=== PATIENT | female | born 1935 | race Caucasian/White ===

== ENCOUNTER 2017-10-13 18:01 | Inpatient (IN) | payer MEDICAID, MEDICARE ==
[~2017-10-13] VITALS: Ht 160 cm; Wt 89.4 kg
[2017-10-13] MEDS ORDERED: SODIUM CHLORIDE 0.9% 1,000 ML IV ONE ×2 (19:18→19:57)
[2017-10-13] MEDS ORDERED: PIPERACILLIN-TAZOB 3.375GM 100 ML IV ONE (20:00)
[2017-10-13 20:38] LABS: INR 1.15 (0.9-1.15); Partial Thromboplastin Time 26.7 sec (22.64-33.71); Prothrombin Time 12.5 sec (9.37-12.3)
[2017-10-13 20:39] LABS: Basophils # (auto) 0 uL; Eosinophils # (auto) 0 uL; Neutrophils % (auto) 91.3 % (37.0-80.0)
[2017-10-13 20:41] LABS: Albumin 3.1 g/dL (3.4-5.0); BUN/Creatinine Ratio 20.6; Basophils % (auto) 0.1 % (0.0-2.0); Calcium 8.4 mg/dL (8.5-10.1); Hematocrit 34.3 % (36.0-46.0); Hemoglobin 10.2 g/dL (12.2-16.2); Lymphocytes # (auto) 0.8 uL; Lymphocytes % (auto) 3.7 % (10.0-50.0); Mean Corpuscular Hemoglobin 20.7 pg (28.0-32.0); Mean Corpuscular Hgb Conc. 29.9 g/dL (32.0-36.0); Mean Corpuscular Volume 69.4 fL (80.0-100.0); Monocytes # (auto) 1.1 uL; Monocytes % (auto) 4.9 % (0.0-12.0); Neutrophils # (auto) 20.5 uL; Platelet Count (auto) 300 10^3/uL (140-450); Potassium 4.1 mmol/L (3.5-5.1); Red Blood Cells 4.94 10^6/uL (4.0-5.20); Red Cell Distribution Width 19.3 % (11.8-14.3); White Blood Cell 22.4 10^3/uL (4.4-10.8)
[2017-10-13 20:44] LABS: Bilirubin, Total 3.2 mg/dL (0.2-1.0); Total Protein 7.1 g/dL (6.4-8.2)
[2017-10-13] MEDS ORDERED: IBUPROFEN 600 MG TAB PO PRN (22:15)
[2017-10-13] MEDS ORDERED: ONDANSETRON HCL 4 MG/2 ML VIAL IV PRN (22:15)
[2017-10-13] MEDS ORDERED: LACTULOSE 20Gm/30ML SOLN PO PRN (22:15)
[2017-10-13] MEDS ORDERED: VANCOMYCIN PER PHARMACY 0 MG IV SCH (22:15)
[2017-10-13] MEDS ORDERED: MORPHINE SULFATE 4 MG/ML SYR/VIAL IV PRN (22:15)
[2017-10-13] MEDS ORDERED: VANCOMYCIN 1GM/250ML 250 ML IV ONE (22:45)
[2017-10-13] MEDS: PIPERACILLIN-TAZOB 3.375GM 100 ML IV SCH (23:04)
[2017-10-13] MEDS: SODIUM CHLORIDE 0.9% 1,000 ML IV SCH (23:22)
[2017-10-14] VITALS (8 sets, daily range): BP systolic 91–114; BP diastolic 54–74
[2017-10-14] MEDS: VANCOMYCIN 1GM/250ML 250 ML IV SCH
[2017-10-14] MEDS ORDERED: DEXTROSE (50%) 50ML SYRG IV PRN (03:15)
[2017-10-14] MEDS: ACCU-CHEK COMFORT CURVE STRIP VI SCH ×3 (06:37→17:27)
[2017-10-14] MEDS: LEVOTHYROXINE SODIUM 50 MCG TAB PO SCH (06:37)
[2017-10-14] MEDS: PIPERACILLIN-TAZOB 3.375GM 100 ML IV SCH ×3 (06:38→17:27)
[2017-10-14] MEDS: InsuLIN REG 1unit/0.01ml Soln (100units/ml) SC SCH ×3 (06:55→17:27)
[2017-10-14 07:05] LABS: Basophils # (auto) 0 uL; Basophils % (auto) 0.1 % (0.0-2.0); Eosinophils # (auto) 0 uL; Hemoglobin 9.2 g/dL (12.2-16.2); Lymphocytes # (auto) 0.7 uL; Monocytes # (auto) 0.9 uL; Neutrophils # (auto) 12.1 uL; Neutrophils % (auto) 87.9 % (37.0-80.0); White Blood Cell 13.8 10^3/uL (4.4-10.8)
[2017-10-14 07:08] LABS: Eosinophils % (auto) 0.1 % (0.0-7.0); Hematocrit 29.8 % (36.0-46.0); Lymphocytes % (auto) 5.2 % (10.0-50.0); Mean Corpuscular Hemoglobin 21.2 pg (28.0-32.0); Mean Corpuscular Hgb Conc. 30.7 g/dL (32.0-36.0); Mean Corpuscular Volume 69.2 fL (80.0-100.0); Monocytes % (auto) 6.7 % (0.0-12.0); Nucleated Red Blood Cells % 0.1 %; Platelet Count (auto) 218 10^3/uL (140-450); Red Blood Cells 4.31 10^6/uL (4.0-5.20); Red Cell Distribution Width 19.1 % (11.8-14.3)
[2017-10-14 07:30] LABS: Albumin 2.8 g/dL (3.4-5.0); Bilirubin, Total 3.8 mg/dL (0.2-1.0); Calcium 7.5 mg/dL (8.5-10.1); Total Protein 6.4 g/dL (6.4-8.2)
[2017-10-14] MEDS: ENOXAPARIN SOD 40 MG/0.4 ML SYRINGE SC SCH (11:34)
[2017-10-14] MEDS: SODIUM CHLORIDE 0.9% 1,000 ML IV SCH (11:35)
[2017-10-14] MEDS ORDERED: MELO1TAB56 PO (12:34)
[2017-10-14] MEDS ORDERED: GLIP-116 PO (12:34)
[2017-10-14] MEDS ORDERED: METF-371 PO (12:34)
[2017-10-14] MEDS ORDERED: PANT1INJ3 PO (12:34)
[2017-10-14] MEDS ORDERED: LEVO50TA7 PO (12:34)
[2017-10-14] MEDS ORDERED: DIGO0.1220 PO (12:34)
[2017-10-14] MEDS ORDERED: ENAL2.5T PO (12:34)
[2017-10-14] MEDS ORDERED: ATOR10TA PO (12:34)
[2017-10-14] MEDS ORDERED: SITA100T7 PO (12:34)
[2017-10-14 13:02] LABS: Urine Bacteria FEW /hpf (None Seen); Urine Blood 1+ /uL (Negative); Urine Specific Gravity 1.015 (1.001-1.035); Urine WBC 22 /hpf (0 - 5)
[2017-10-14 14:05] LABS: Bilirubin, Total 3.8 mg/dL (0.2-1.0)
[2017-10-14] MEDS ORDERED: ATORVASTATIN 20 MG TAB PO SCH (22:00)
[2017-10-15] VITALS (7 sets, daily range): BP systolic 121–148; BP diastolic 67–86
[2017-10-15] MEDS ORDERED: VANCOMYCIN 1GM/250ML 250 ML IV SCH
[2017-10-15] MEDS: VANCOMYCIN 1GM/250ML 250 ML IV SCH (00:07)
[2017-10-15] MEDS: PIPERACILLIN-TAZOB 3.375GM 100 ML IV SCH ×6 (00:07→23:30)
[2017-10-15] MEDS: ACCU-CHEK COMFORT CURVE STRIP VI SCH ×5 (00:07→23:30)
[2017-10-15] MEDS: SODIUM CHLORIDE 0.9% 1,000 ML IV SCH ×2 (00:55→13:59)
[2017-10-15] MEDS ORDERED: diphenhdrAMINE HCL 25 MG CAP PO ONE (01:15)
[2017-10-15] MEDS: InsuLIN REG 1unit/0.01ml Soln (100units/ml) SC SCH ×5 (06:00→23:30)
[2017-10-15] MEDS: LEVOTHYROXINE SODIUM 50 MCG TAB PO SCH (06:14)
[2017-10-15 06:40] LABS: Basophils # (auto) 0 uL; Eosinophils # (auto) 0.3 uL; Hemoglobin 9.5 g/dL (12.2-16.2); Monocytes # (auto) 0.7 uL; Nucleated Red Blood Cells % 0.1 %
[2017-10-15 06:43] LABS: Basophils % (auto) 0.4 % (0.0-2.0); Hematocrit 30.3 % (36.0-46.0); Lymphocytes # (auto) 1.8 uL; Lymphocytes % (auto) 18.1 % (10.0-50.0); Mean Corpuscular Hemoglobin 21.5 pg (28.0-32.0); Mean Corpuscular Hgb Conc. 31.3 g/dL (32.0-36.0); Mean Corpuscular Volume 68.7 fL (80.0-100.0); Monocytes % (auto) 7.2 % (0.0-12.0); Neutrophils # (auto) 7.1 uL; Neutrophils % (auto) 71.3 % (37.0-80.0); Platelet Count (auto) 251 10^3/uL (140-450); Red Blood Cells 4.41 10^6/uL (4.0-5.20); Red Cell Distribution Width 19.7 % (11.8-14.3); White Blood Cell 9.9 10^3/uL (4.4-10.8)
[2017-10-15 07:05] LABS: BUN/Creatinine Ratio 21.8; Bilirubin, Total 2.6 mg/dL (0.2-1.0); Calcium 8.4 mg/dL (8.5-10.1); Total Protein 7.3 g/dL (6.4-8.2)
[2017-10-15] MEDS: ENOXAPARIN SOD 40 MG/0.4 ML SYRINGE SC SCH (10:00)
[2017-10-15] MEDS ORDERED: PANTOPRAZOLE 40 MG TAB PO ONE (11:00)
[2017-10-15] MEDS ORDERED: DIGOXIN 0.125 MG TAB PO ONE (11:00)
[2017-10-15] MEDS ORDERED: PANTOPRAZOLE 40 MG/10 ML VIAL IV ONE (13:45)
[2017-10-16] VITALS (21 sets, daily range): BP systolic 77–151; BP diastolic 33–96
[2017-10-16] MEDS: VANCOMYCIN 1GM/250ML 250 ML IV SCH
[2017-10-16] MEDS: SODIUM CHLORIDE 0.9% 1,000 ML IV SCH (03:51)
[2017-10-16] MEDS: ACCU-CHEK COMFORT CURVE STRIP VI SCH ×3 (05:30→19:02)
[2017-10-16] MEDS: InsuLIN REG 1unit/0.01ml Soln (100units/ml) SC SCH ×3 (05:30→19:02)
[2017-10-16] MEDS: PIPERACILLIN-TAZOB 3.375GM 100 ML IV SCH ×2 (05:32→15:38)
[2017-10-16] MEDS: LEVOTHYROXINE SODIUM 50 MCG TAB PO SCH (06:02)
[2017-10-16 06:06] LABS: Albumin 2.8 g/dL (3.4-5.0); BUN/Creatinine Ratio 25.8; Bilirubin, Total 2.1 mg/dL (0.2-1.0); Calcium 8.1 mg/dL (8.5-10.1); Potassium 3.9 mmol/L (3.5-5.1); Total Protein 6.6 g/dL (6.4-8.2)
[2017-10-16] MEDS ORDERED: ADENOSINE 71 MG in GIVE UN-DILUTED 0 ML IV STA (08:32)
[2017-10-16] MEDS ORDERED: PANTOPRAZOLE 40 MG TAB PO SCH (10:00)
[2017-10-16] MEDS ORDERED: ceFAZolin 1GM/50ML 50 ML IV ONE (12:51)
[2017-10-16] MEDS ORDERED: fentaNYL CITRATE 100 MCG/2 ML VL ONE ×3 (12:56→19:00)
[2017-10-16] MEDS ORDERED: MIDAZOLAM HCL 1MG/1ML-2 ML VIAL ONE ×3 (12:56→19:00)
[2017-10-16] MEDS ORDERED: MEPERIDINE HCL (50 MG/ML) 1 ML VIAL ONE ×2 (12:56→18:21)
[2017-10-16] MEDS ORDERED: DEXAMETHASONE SOD PHOS 10MG/1ML VIAL INJ ONE ×2 (13:05→19:00)
[2017-10-16] MEDS ORDERED: PROPOFOL 10 MG/ML 20 ML IV ONE (13:05)
[2017-10-16] MEDS ORDERED: MIDAZOLAM HCL 1MG/1ML-2 ML VIAL IV PRN (14:00)
[2017-10-16] MEDS ORDERED: MORPHINE SULFATE 4 MG/ML SYR/VIAL IV ONE ×2 (14:00→20:00)
[2017-10-16] MEDS ORDERED: ACCU-CHEK COMFORT CURVE STRIP VI ONE (14:00)
[2017-10-16] MEDS ORDERED: LABETALOL HCL 5 MG/ML 4ML SYRINGE IV PRN ×2 (14:00→20:00)
[2017-10-16] MEDS: KETOROLAC TROMETH 30 MG/ML 1ML VIAL IV ONE ×2 (14:00→14:53)
[2017-10-16] MEDS ORDERED: DIGOXIN (250MCG/ML) 2 ML AMPULE ONE (14:19)
[2017-10-16] MEDS: MORPHINE SULFATE 4 MG/ML SYR/VIAL IV PRN ×2 (14:20→14:50)
[2017-10-16] MEDS: DIGOXIN (250MCG/ML) 2 ML AMPULE IV PRN ×2 (14:22→14:32)
[2017-10-16] MEDS ORDERED: AMIODARONE HCL 150 MG in D5W 5% 100 ML IV ONE (14:30)
[2017-10-16] MEDS ORDERED: KETOROLAC TROMETH 30 MG/ML 1ML VIAL ONE (14:45)
[2017-10-16] MEDS ORDERED: MORPHINE SULFATE INJECTION 1 ML ONE (14:51)
[2017-10-16] MEDS ORDERED: KETOROLAC TROMETH 30 MG/ML 1ML VIAL IV ONE ×2 (15:00→15:15)
[2017-10-16] MEDS ORDERED: MORPHINE SULFATE 8mg/ml INJ SDV IV PRN ×2 (15:00→20:00)
[2017-10-16] MEDS: ENOXAPARIN SOD 40 MG/0.4 ML SYRINGE SC SCH (15:38)
[2017-10-16] MEDS: DIGOXIN 0.125 MG TAB PO SCH (15:38)
[2017-10-16] MEDS: PANTOPRAZOLE 40 MG/10 ML VIAL IV SCH (15:38)
[2017-10-16] MEDS ORDERED: D5W/ SOD CHL 0.9%/KCL 20MEQ 1,000 ML IV SCH (15:45)
[2017-10-16] MEDS ORDERED: D5W/SOD CHL 0.45%/KCL 20MEQ 1,000 ML IV SCH (16:00)
[2017-10-16] MEDS: MORPHINE SULFATE 8mg/ml INJ SDV IV PRN (16:01)
[2017-10-16 17:43] LABS: Basophils # (auto) 0 uL; Eosinophils # (auto) 0 uL; Red Cell Distribution Width 19.4 % (11.8-14.3)
[2017-10-16 17:45] LABS: Basophils % (auto) 0.3 % (0.0-2.0); Hematocrit 23.7 % (36.0-46.0); Lymphocytes % (auto) 5.7 % (10.0-50.0); Mean Corpuscular Hgb Conc. 29.3 g/dL (32.0-36.0); Mean Corpuscular Volume 71.5 fL (80.0-100.0); Monocytes # (auto) 0.3 uL; Monocytes % (auto) 1.5 % (0.0-12.0); Neutrophils # (auto) 16.3 uL; Neutrophils % (auto) 92.5 % (37.0-80.0); Nucleated Red Blood Cells % 0.1 %; Platelet Count (auto) 248 10^3/uL (140-450); Red Blood Cells 3.32 10^6/uL (4.0-5.20); White Blood Cell 17.6 10^3/uL (4.4-10.8)
[2017-10-16 17:58] LABS: INR 1.07 (0.9-1.15); Partial Thromboplastin Time 24.8 sec (22.64-33.71); Prothrombin Time 11.7 sec (9.37-12.3)
[2017-10-16] MEDS ORDERED: PHENYLEPHRINE HCL 10 MG/ML VL IV ONE (18:01)
[2017-10-16] MEDS ORDERED: ETOMIDATE (2MG/ML) 20ML VIAL IV ONE (19:00)
[2017-10-16] MEDS ORDERED: POVIDONE IODINE 10 % TOPICAL OINT 30GM TOP ONE (19:17)
[2017-10-16] MEDS: PROPOFOL 100 ML IV SCH (19:20)
[2017-10-16] MEDS ORDERED: PROPOFOL 100 ML IV ONE (19:42)
[2017-10-16] MEDS ORDERED: ePHEDrine SULFATE 50 MG/ML AMP IV PRN (20:00)
[2017-10-16] MEDS ORDERED: fentaNYL CITRATE 100 MCG/2 ML VL IV ONE (20:00)
[2017-10-16 20:27] LABS: Eosinophils # (auto) 0 uL; Lymphocytes # (auto) 1.1 uL
[2017-10-16 20:29] LABS: Basophils # (auto) 0 uL; Basophils % (auto) 0.2 % (0.0-2.0); Hematocrit 27.9 % (36.0-46.0); Hemoglobin 8.7 g/dL (12.2-16.2); Lymphocytes % (auto) 5.9 % (10.0-50.0); Mean Corpuscular Hemoglobin 24.9 pg (28.0-32.0); Mean Corpuscular Hgb Conc. 31.1 g/dL (32.0-36.0); Mean Corpuscular Volume 80.1 fL (80.0-100.0); Monocytes % (auto) 4.9 % (0.0-12.0); Neutrophils # (auto) 17.2 uL; Platelet Count (auto) 177 10^3/uL (140-450); Red Blood Cells 3.48 10^6/uL (4.0-5.20); White Blood Cell 19.3 10^3/uL (4.4-10.8)
[2017-10-16 20:31] LABS: Red Cell Distribution Width 22.2 % (11.8-14.3)
[2017-10-16 22:25] LABS: Eosinophils # (auto) 0 uL; Hemoglobin 8.7 g/dL (12.2-16.2); Lymphocytes # (auto) 0.8 uL; Monocytes # (auto) 0.6 uL; Monocytes % (auto) 3.9 % (0.0-12.0); Neutrophils # (auto) 13.6 uL; Nucleated Red Blood Cells % 0.1 %
[2017-10-16 22:27] LABS: Basophils # (auto) 0.1 uL; Basophils % (auto) 0.5 % (0.0-2.0); Hematocrit 27.6 % (36.0-46.0); Lymphocytes % (auto) 5.1 % (10.0-50.0); Mean Corpuscular Hemoglobin 24.7 pg (28.0-32.0); Mean Corpuscular Hgb Conc. 31.6 g/dL (32.0-36.0); Mean Corpuscular Volume 78.1 fL (80.0-100.0); Neutrophils % (auto) 90.5 % (37.0-80.0); Platelet Count (auto) 180 10^3/uL (140-450); Red Blood Cells 3.53 10^6/uL (4.0-5.20); White Blood Cell 15.1 10^3/uL (4.4-10.8)
[2017-10-16 22:30] LABS: Red Cell Distribution Width 22.1 % (11.8-14.3)
[2017-10-17] VITALS (100 sets, daily range): BP systolic 103–186; BP diastolic 41–118
[2017-10-17] MEDS: MORPHINE SULFATE 8mg/ml INJ SDV IV PRN ×2 (03:00→13:24)
[2017-10-17 03:44] LABS: Basophils # (auto) 0 uL; Basophils % (auto) 0.1 % (0.0-2.0); Eosinophils # (auto) 0 uL; Hemoglobin 9.1 g/dL (12.2-16.2); Mean Corpuscular Volume 78.1 fL (80.0-100.0)
[2017-10-17 03:46] LABS: Hematocrit 29.1 % (36.0-46.0); Lymphocytes # (auto) 1.1 uL; Lymphocytes % (auto) 8.5 % (10.0-50.0); Mean Corpuscular Hemoglobin 24.5 pg (28.0-32.0); Mean Corpuscular Hgb Conc. 31.3 g/dL (32.0-36.0); Monocytes # (auto) 0.4 uL; Neutrophils # (auto) 11.2 uL; Neutrophils % (auto) 88.4 % (37.0-80.0); Platelet Count (auto) 178 10^3/uL (140-450); Red Blood Cells 3.73 10^6/uL (4.0-5.20); White Blood Cell 12.6 10^3/uL (4.4-10.8)
[2017-10-17 03:54] LABS: Red Cell Distribution Width 21.7 % (11.8-14.3)
[2017-10-17 04:00] LABS: Albumin 2.3 g/dL (3.4-5.0); Calcium 6.8 mg/dL (8.5-10.1); Magnesium 1.6 mg/dL (1.6-2.6)
[2017-10-17 04:02] LABS: Bilirubin, Total 1.5 mg/dL (0.2-1.0); Total Protein 5.5 g/dL (6.4-8.2)
[2017-10-17] MEDS: PIPERACILLIN-TAZOB 3.375GM 100 ML IV SCH ×4 (06:14→17:59)
[2017-10-17] MEDS: InsuLIN REG 1unit/0.01ml Soln (100units/ml) SC SCH ×4 (06:14→17:59)
[2017-10-17] MEDS: ACCU-CHEK COMFORT CURVE STRIP VI SCH ×4 (06:15→17:59)
[2017-10-17] MEDS: LEVOTHYROXINE SODIUM 50 MCG TAB PO SCH (06:15)
[2017-10-17] MEDS: PROPOFOL 100 ML IV SCH (06:21)
[2017-10-17] MEDS ORDERED: SODIUM CHLORIDE 0.9% 1,000 ML IV ONE (07:00)
[2017-10-17] MEDS: D5W/SOD CHL 0.45% 1,000 ML IV SCH ×2 (07:00→20:20)
[2017-10-17] MEDS: ENOXAPARIN SOD 40 MG/0.4 ML SYRINGE SC SCH (10:00)
[2017-10-17] MEDS ORDERED: MAGNESIUM SULFATE 1GM/100ML 100 ML IV ONE (10:45)
[2017-10-17] MEDS ORDERED: LIDOCAINE 1% (LOCAL ANESTH.) PF 5ml SDV ID ONE (12:00)
[2017-10-17] MEDS ORDERED: SODIUM BICARBONATE 8.4% INJ 50ML SYRINGE ONE (12:17)
[2017-10-17] MEDS: VANCOMYCIN 1GM/250ML 250 ML IV SCH ×3 (12:21→22:23)
[2017-10-17] MEDS: PANTOPRAZOLE 40 MG/10 ML VIAL IV SCH (12:24)
[2017-10-17] MEDS: DIGOXIN 0.125 MG TAB PO SCH (12:24)
[2017-10-17] MEDS ORDERED: SODIUM BICARBONATE 8.4 % INJ 50ML VIAL IV ONE (14:15)
[2017-10-17] MEDS: AMIODARONE HCL 900 MG in DEXTROSE 500 ML IV SCH (14:53)
[2017-10-17] MEDS ORDERED: ACETAMINOPHEN 325 MG TAB PO PRN (15:30)
[2017-10-17] MEDS: hydrALAZINE HCL 20 MG/ML VL IV PRN (15:51)
[2017-10-17] MEDS: SODIUM CHLOR 0.9% PF (SALINE LOCK) 10ML VIAL/SYR IV SCH (22:23)
[2017-10-18] VITALS (52 sets, daily range): BP systolic 109–162; BP diastolic 40–89
[2017-10-18] MEDS: PIPERACILLIN-TAZOB 3.375GM 100 ML IV SCH ×4 (05:58→18:07)
[2017-10-18] MEDS: ACCU-CHEK COMFORT CURVE STRIP VI SCH ×4 (05:59→18:07)
[2017-10-18] MEDS: InsuLIN REG 1unit/0.01ml Soln (100units/ml) SC SCH ×4 (06:08→18:07)
[2017-10-18] MEDS: LEVOTHYROXINE SODIUM 50 MCG TAB PO SCH (06:35)
[2017-10-18] MEDS: AMIODARONE HCL 900 MG in DEXTROSE 500 ML IV SCH (07:43)
[2017-10-18 08:49] LABS: Basophils # (auto) 0 uL; Eosinophils # (auto) 0 uL; Eosinophils % (auto) 0.1 % (0.0-7.0); Nucleated Red Blood Cells % 0.2 %
[2017-10-18 08:50] LABS: Basophils % (auto) 0.2 % (0.0-2.0); Hematocrit 22.4 % (36.0-46.0); Hemoglobin 7.1 g/dL (12.2-16.2); Lymphocytes # (auto) 2.5 uL; Lymphocytes % (auto) 13.6 % (10.0-50.0); Mean Corpuscular Hemoglobin 24.4 pg (28.0-32.0); Mean Corpuscular Hgb Conc. 31.5 g/dL (32.0-36.0); Mean Corpuscular Volume 77.5 fL (80.0-100.0); Monocytes # (auto) 1.2 uL; Monocytes % (auto) 6.7 % (0.0-12.0); Neutrophils # (auto) 14.4 uL; Neutrophils % (auto) 79.4 % (37.0-80.0); Platelet Count (auto) 205 10^3/uL (140-450); White Blood Cell 18.1 10^3/uL (4.4-10.8)
[2017-10-18 08:53] LABS: Red Cell Distribution Width 22.3 % (11.8-14.3)
[2017-10-18 09:27] LABS: Albumin 2.3 g/dL (3.4-5.0); BUN/Creatinine Ratio 22.9; Bilirubin, Total 0.9 mg/dL (0.2-1.0); Potassium 3.8 mmol/L (3.5-5.1); Total Protein 5.3 g/dL (6.4-8.2)
[2017-10-18] MEDS: DIGOXIN 0.125 MG TAB PO SCH (09:33)
[2017-10-18] MEDS: VANCOMYCIN 1GM/250ML 250 ML IV SCH ×2 (09:33→22:00)
[2017-10-18] MEDS: SODIUM CHLOR 0.9% PF (SALINE LOCK) 10ML VIAL/SYR IV SCH ×2 (09:33→22:00)
[2017-10-18] MEDS: PANTOPRAZOLE 40 MG/10 ML VIAL IV SCH (09:33)
[2017-10-18] MEDS: ENOXAPARIN SOD 40 MG/0.4 ML SYRINGE SC SCH (09:34)
[2017-10-18] MEDS: D5W/SOD CHL 0.45% 1,000 ML IV SCH ×2 (09:34→23:17)
[2017-10-18] MEDS ORDERED: AMIODARONE HCL 200 MG TAB PO ONE (12:45)
[2017-10-18] MEDS ORDERED: LORazepam 2MG/ML-1ML VIAL IV PRN (13:00)
[2017-10-18] MEDS: MORPHINE SULFATE 8mg/ml INJ SDV IV PRN (13:13)
[2017-10-18] MEDS ORDERED: HEPARIN DRIP/D5W 100UNITS/ML 250 ML IV SCH (15:30)
[2017-10-18] MEDS ORDERED: ENOXAPARIN SOD 30 MG/0.3 ML SYRINGE SC ONE (16:30)
[2017-10-18] MEDS: PROPOFOL 100 ML IV SCH (19:20)
[2017-10-18 21:22] LABS: INR 0.99 (0.9-1.15); Partial Thromboplastin Time 23.6 sec (22.64-33.71); Prothrombin Time 10.8 sec (9.37-12.3)
[2017-10-18] MEDS: ENOXAPARIN SOD 30 MG/0.3 ML SYRINGE SC SCH (22:00)
[2017-10-18] MEDS: AMIODARONE HCL 200 MG TAB PO SCH (22:00)
[2017-10-19] VITALS (41 sets, daily range): BP systolic 118–168; BP diastolic 48–123
[2017-10-19 04:46] LABS: Basophils # (auto) 0.1 uL; Eosinophils # (auto) 0.1 uL; Hemoglobin 8.4 g/dL (12.2-16.2); Neutrophils # (auto) 14.7 uL; Nucleated Red Blood Cells % 0.3 %; Platelet Count (auto) 179 10^3/uL (140-450)
[2017-10-19 04:48] LABS: Basophils % (auto) 0.3 % (0.0-2.0); Eosinophils % (auto) 0.5 % (0.0-7.0); Hematocrit 26.1 % (36.0-46.0); Lymphocytes % (auto) 15.8 % (10.0-50.0); Mean Corpuscular Hemoglobin 26.5 pg (28.0-32.0); Mean Corpuscular Hgb Conc. 32.2 g/dL (32.0-36.0); Mean Corpuscular Volume 82.2 fL (80.0-100.0); Monocytes # (auto) 1.2 uL; Monocytes % (auto) 6.1 % (0.0-12.0); Neutrophils % (auto) 77.3 % (37.0-80.0); Red Blood Cells 3.18 10^6/uL (4.0-5.20)
[2017-10-19 04:50] LABS: BUN/Creatinine Ratio 14.8; Calcium 6.2 mg/dL (8.5-10.1); Potassium 3.7 mmol/L (3.5-5.1); Red Cell Distribution Width 22.8 % (11.8-14.3)
[2017-10-19] MEDS: ACCU-CHEK COMFORT CURVE STRIP VI SCH ×7 (05:50→22:22)
[2017-10-19] MEDS: PIPERACILLIN-TAZOB 3.375GM 100 ML IV SCH ×4 (05:50→17:26)
[2017-10-19] MEDS: LEVOTHYROXINE SODIUM 50 MCG TAB PO SCH (05:50)
[2017-10-19] MEDS: InsuLIN REG 1unit/0.01ml Soln (100units/ml) SC SCH ×5 (06:04→22:21)
[2017-10-19] MEDS: hydrALAZINE HCL 20 MG/ML VL IV PRN (06:56)
[2017-10-19] MEDS: MORPHINE SULFATE 8mg/ml INJ SDV IV PRN ×2 (08:59→21:09)
[2017-10-19] MEDS: SODIUM CHLOR 0.9% PF (SALINE LOCK) 10ML VIAL/SYR IV SCH ×2 (10:00→22:00)
[2017-10-19] MEDS: ENOXAPARIN SOD 30 MG/0.3 ML SYRINGE SC SCH ×2 (11:10→21:08)
[2017-10-19] MEDS: PANTOPRAZOLE 40 MG/10 ML VIAL IV SCH (11:10)
[2017-10-19] MEDS: DIGOXIN 0.125 MG TAB PO SCH (11:11)
[2017-10-19] MEDS: AMIODARONE HCL 200 MG TAB PO SCH ×2 (11:11→21:09)
[2017-10-19] MEDS ORDERED: DEXTROSE (50%) 50ML SYRG IV PRN (11:30)
[2017-10-19] MEDS ORDERED: ENALAPRIL MALEATE 2.5 MG TAB ONE (11:33)
[2017-10-19] MEDS: VANCOMYCIN 1GM/250ML 250 ML IV SCH ×2 (11:40→21:08)
[2017-10-19] MEDS: D5W/SOD CHL 0.45% 1,000 ML IV SCH (12:30)
[2017-10-20] VITALS: BP 158/75
[2017-10-20] MEDS: PIPERACILLIN-TAZOB 3.375GM 100 ML IV SCH ×5 (00:22→23:43)
[2017-10-20] MEDS: ACCU-CHEK COMFORT CURVE STRIP VI SCH ×7 (00:22→21:29)
[2017-10-20] MEDS: D5W/SOD CHL 0.45% 1,000 ML IV SCH (01:40)
[2017-10-20 04:00] VITALS: BP 166/66
[2017-10-20] MEDS: hydrALAZINE HCL 20 MG/ML VL IV PRN (05:52)
[2017-10-20 05:59] LABS: Basophils % (auto) 0.3 % (0.0-2.0); Eosinophils # (auto) 0.2 uL; Hemoglobin 8.7 g/dL (12.2-16.2); Monocytes # (auto) 0.9 uL; Monocytes % (auto) 5.5 % (0.0-12.0); Neutrophils # (auto) 12.4 uL; Nucleated Red Blood Cells % 0.2 %; White Blood Cell 15.9 10^3/uL (4.4-10.8)
[2017-10-20 06:06] LABS: Basophils # (auto) 0.1 uL; Eosinophils % (auto) 1.3 % (0.0-7.0); Lymphocytes # (auto) 2.3 uL; Lymphocytes % (auto) 14.6 % (10.0-50.0); Mean Corpuscular Hemoglobin 26.2 pg (28.0-32.0); Mean Corpuscular Hgb Conc. 32.3 g/dL (32.0-36.0); Neutrophils % (auto) 78.3 % (37.0-80.0); Platelet Count (auto) 205 10^3/uL (140-450); Red Blood Cells 3.34 10^6/uL (4.0-5.20)
[2017-10-20 06:15] LABS: Red Cell Distribution Width 23.4 % (11.8-14.3)
[2017-10-20] MEDS: InsuLIN REG 1unit/0.01ml Soln (100units/ml) SC SCH ×4 (07:00→21:49)
[2017-10-20] MEDS: LEVOTHYROXINE SODIUM 50 MCG TAB PO SCH (07:00)
[2017-10-20] MEDS: MORPHINE SULFATE 8mg/ml INJ SDV IV PRN ×2 (08:01→08:52)
[2017-10-20 08:03] VITALS: BP 131/67
[2017-10-20 08:54] LABS: Albumin 2.2 g/dL (3.4-5.0); BUN/Creatinine Ratio 8.1; Bilirubin, Total 1.1 mg/dL (0.2-1.0); Calcium 7.3 mg/dL (8.5-10.1); Potassium 3.9 mmol/L (3.5-5.1); Total Protein 5.5 g/dL (6.4-8.2)
[2017-10-20] MEDS: PANTOPRAZOLE 40 MG/10 ML VIAL IV SCH (10:11)
[2017-10-20] MEDS: VANCOMYCIN 1GM/250ML 250 ML IV SCH ×2 (10:11→21:28)
[2017-10-20] MEDS: ENOXAPARIN SOD 30 MG/0.3 ML SYRINGE SC SCH ×2 (10:11→21:29)
[2017-10-20] MEDS: ENALAPRIL MALEATE 2.5 MG TAB PO SCH (10:12)
[2017-10-20] MEDS: AMIODARONE HCL 200 MG TAB PO SCH ×2 (10:13→21:29)
[2017-10-20] MEDS: DIGOXIN 0.125 MG TAB PO SCH (10:13)
[2017-10-20] MEDS: SODIUM CHLOR 0.9% PF (SALINE LOCK) 10ML VIAL/SYR IV SCH ×2 (10:14→21:29)
[2017-10-20 11:50] VITALS: BP 167/74
[2017-10-20 17:07] VITALS: BP 159/75
[2017-10-20 22:00] VITALS: BP 155/81
[2017-10-21 05:00] VITALS: BP 133/67
[2017-10-21 05:39] LABS: Basophils # (auto) 0 uL; Basophils % (auto) 0.4 % (0.0-2.0); Eosinophils # (auto) 0.3 uL; Hemoglobin 8.9 g/dL (12.2-16.2); Nucleated Red Blood Cells % 0.2 %
[2017-10-21] MEDS: PIPERACILLIN-TAZOB 3.375GM 100 ML IV SCH (05:45)
[2017-10-21 05:46] LABS: Eosinophils % (auto) 2.4 % (0.0-7.0); Hematocrit 27.7 % (36.0-46.0); Lymphocytes % (auto) 15.4 % (10.0-50.0); Mean Corpuscular Hemoglobin 26.1 pg (28.0-32.0); Mean Corpuscular Hgb Conc. 32.2 g/dL (32.0-36.0); Mean Corpuscular Volume 80.9 fL (80.0-100.0); Monocytes # (auto) 0.9 uL; Neutrophils # (auto) 9.9 uL; Neutrophils % (auto) 74.8 % (37.0-80.0); Platelet Count (auto) 241 10^3/uL (140-450); Red Blood Cells 3.42 10^6/uL (4.0-5.20); White Blood Cell 13.2 10^3/uL (4.4-10.8)
[2017-10-21 05:55] LABS: Albumin 2.2 g/dL (3.4-5.0); BUN/Creatinine Ratio 11.5; Calcium 7.8 mg/dL (8.5-10.1)
[2017-10-21 05:58] LABS: Bilirubin, Total 1.1 mg/dL (0.2-1.0); Total Protein 5.6 g/dL (6.4-8.2)
[2017-10-21 06:05] LABS: Red Cell Distribution Width 23.8 % (11.8-14.3)
[2017-10-21] MEDS: ACCU-CHEK COMFORT CURVE STRIP VI SCH ×4 (06:30→22:05)
[2017-10-21] MEDS: LEVOTHYROXINE SODIUM 50 MCG TAB PO SCH (06:30)
[2017-10-21] MEDS: InsuLIN REG 1unit/0.01ml Soln (100units/ml) SC SCH ×4 (06:30→22:04)
[2017-10-21 08:26] VITALS: BP 140/71
[2017-10-21] MEDS ORDERED: MAGNESIUM SULFATE 1GM/100ML 100 ML IV ONE (09:15)
[2017-10-21] MEDS ORDERED: HYDR-4683 PO (10:21)
[2017-10-21] MEDS ORDERED: LEVO500T21 PO (10:26)
[2017-10-21] MEDS ORDERED: METR500T PO (10:26)
[2017-10-21] MEDS ORDERED: DOCU-94 PO (10:26)
[2017-10-21] MEDS ORDERED: CLIN1CAP4 PO (10:26)
[2017-10-21] MEDS ORDERED: SACC250C PO (10:26)
[2017-10-21] MEDS ORDERED: LEVOFLOXACIN 500 MG TAB PO ONE (10:45)
[2017-10-21] MEDS ORDERED: LACTULOSE 20Gm/30ML SOLN PO PRN (10:45)
[2017-10-21] MEDS: ENOXAPARIN SOD 30 MG/0.3 ML SYRINGE SC SCH ×2 (10:49→22:04)
[2017-10-21] MEDS: ENALAPRIL MALEATE 2.5 MG TAB PO SCH (10:50)
[2017-10-21] MEDS: DIGOXIN 0.125 MG TAB PO SCH (10:50)
[2017-10-21] MEDS: SODIUM CHLOR 0.9% PF (SALINE LOCK) 10ML VIAL/SYR IV SCH ×2 (10:51→22:03)
[2017-10-21] MEDS: AMIODARONE HCL 200 MG TAB PO SCH ×2 (10:51→22:04)
[2017-10-21] MEDS ORDERED: glipiZIDE 5 MG TAB PO ONE (11:00)
[2017-10-21] MEDS ORDERED: DEXTROSE (50%) 50ML SYRG IV PRN (11:00)
[2017-10-21] MEDS ORDERED: FLORASTOR (S. BOULARDII) 250 MG CAP PO SCH (12:00)
[2017-10-21 12:36] VITALS: BP 164/79
[2017-10-21] MEDS: MORPHINE SULFATE 8mg/ml INJ SDV IV PRN ×2 (13:52→23:57)
[2017-10-21] MEDS: metroNIDAZOLE 500 MG TAB PO SCH ×2 (14:03→22:04)
[2017-10-21] MEDS: CLINDAMYCIN HCL 150 MG CAP PO SCH ×2 (14:03→22:04)
[2017-10-21 16:56] VITALS: BP 139/65
[2017-10-21] MEDS: PRO-STAT 64 30ML PO SCH (17:33)
[2017-10-21 22:00] VITALS: BP 164/79
[2017-10-21] MEDS: hydrALAZINE HCL 20 MG/ML VL IV PRN (22:05)
[2017-10-22 05:47] VITALS: BP 156/79
[2017-10-22 05:48] LABS: Basophils # (auto) 0 uL; Eosinophils # (auto) 0.3 uL; Hematocrit 28.3 % (36.0-46.0); Monocytes # (auto) 0.9 uL
[2017-10-22 05:51] LABS: Basophils % (auto) 0.3 % (0.0-2.0); Lymphocytes # (auto) 1.9 uL; Lymphocytes % (auto) 16.5 % (10.0-50.0); Mean Corpuscular Hemoglobin 25.9 pg (28.0-32.0); Mean Corpuscular Hgb Conc. 31.9 g/dL (32.0-36.0); Mean Corpuscular Volume 81.3 fL (80.0-100.0); Monocytes % (auto) 7.9 % (0.0-12.0); Neutrophils # (auto) 8.5 uL; Neutrophils % (auto) 72.3 % (37.0-80.0); Nucleated Red Blood Cells % 0.1 %; Platelet Count (auto) 293 10^3/uL (140-450); Red Blood Cells 3.48 10^6/uL (4.0-5.20); White Blood Cell 11.7 10^3/uL (4.4-10.8)
[2017-10-22 06:01] LABS: Red Cell Distribution Width 23.1 % (11.8-14.3)
[2017-10-22 06:06] LABS: Albumin 2.4 g/dL (3.4-5.0)
[2017-10-22 06:13] LABS: BUN/Creatinine Ratio 14.5
[2017-10-22 06:15] LABS: Bilirubin, Total 1.1 mg/dL (0.2-1.0)
[2017-10-22] MEDS: CLINDAMYCIN HCL 150 MG CAP PO SCH (06:20)
[2017-10-22] MEDS: metroNIDAZOLE 500 MG TAB PO SCH (06:20)
[2017-10-22] MEDS: ACCU-CHEK COMFORT CURVE STRIP VI SCH ×2 (06:21→12:14)
[2017-10-22] MEDS: InsuLIN REG 1unit/0.01ml Soln (100units/ml) SC SCH ×2 (06:21→12:14)
[2017-10-22] MEDS: LEVOTHYROXINE SODIUM 50 MCG TAB PO SCH (06:21)
[2017-10-22] MEDS ORDERED: glipiZIDE 5 MG TAB PO SCH (07:00)
[2017-10-22] MEDS: PRO-STAT 64 30ML PO SCH (08:00)
[2017-10-22 09:00] VITALS: BP 149/82
[2017-10-22] MEDS ORDERED: PANTOPRAZOLE 40 MG TAB PO SCH (10:00)
[2017-10-22] MEDS ORDERED: LEVOFLOXACIN 500 MG TAB PO SCH ×2 (10:00→10:45)
[2017-10-22] MEDS: DIGOXIN 0.125 MG TAB PO SCH (10:24)
[2017-10-22] MEDS: SODIUM CHLOR 0.9% PF (SALINE LOCK) 10ML VIAL/SYR IV SCH (10:27)
[2017-10-22] MEDS: ENALAPRIL MALEATE 2.5 MG TAB PO SCH (10:27)
[2017-10-22] MEDS: ENOXAPARIN SOD 30 MG/0.3 ML SYRINGE SC SCH (10:27)
[2017-10-22] MEDS ORDERED: LEVO500T21 PO (10:30)
[2017-10-22] MEDS ORDERED: CLIN1CAP4 PO (10:30)
[2017-10-22] MEDS ORDERED: HYDROcodone-ACET 5/325MG TAB PO PRN (10:30)
[2017-10-22] MEDS ORDERED: LACTULOSE 20Gm/30ML SOLN PO PRN (10:30)
[2017-10-22] MEDS ORDERED: AMIO200T33 PO (10:30)
[2017-10-22] MEDS ORDERED: METR500T PO (10:30)
[2017-10-22] MEDS ORDERED: FLORASTOR (S. BOULARDII) 250 MG CAP PO SCH (10:45)
[2017-10-22] MEDS ORDERED: AMIODARONE HCL 200 MG TAB PO SCH (10:45)
[2017-10-22] MEDS: hydrALAZINE HCL 20 MG/ML VL IV PRN (13:30)
[2017-10-22] MEDS ORDERED: CLINDAMYCIN HCL 150 MG CAP PO SCH (14:00)
[2017-10-22] MEDS ORDERED: metroNIDAZOLE 500 MG TAB PO SCH (14:00)
== END 2017-10-22 13:21 | DRG 710 ==
LOC: ER 18:01 → TELE 18:02 → TELE-WESTW 10-14 00:50 → DOU IN ICU 10-16 16:18 → ICU WEST 10-16 21:07 → DOU IN ICU 10-19 15:10 → TELE-CENTR 10-20 15:05
PROVIDERS: ADMIT Nurse Practitioner Family; ATTEND Internal Medicine
PROC: 0W9G4ZZ Drainage of Peritoneal Cavity, Percutaneous Endoscopic Approach (ICD-10-PCS; 2017-10-16)
PROC: 30233N1 Transfusion of Nonautologous Red Blood Cells into Peripheral Vein, Percutaneous Approach (ICD-10-PCS; 2017-10-16)
PROC: 5A1935Z Respiratory Ventilation, Less than 24 Consecutive Hours (ICD-10-PCS; 2017-10-16)
PROC: 0BH17EZ Insertion of Endotracheal Airway into Trachea, Via Natural or Artificial Opening (ICD-10-PCS; 2017-10-16)
PROC: 0FT44ZZ Resection of Gallbladder, Percutaneous Endoscopic Approach (ICD-10-PCS; principal; 2017-10-16 12:58)
PROC: 02HV33Z Insertion of Infusion Device into Superior Vena Cava, Percutaneous Approach (ICD-10-PCS; 2017-10-18)
DX: A41.9 Sepsis, unspecified organism (principal); J96.00 Acute respiratory failure, unspecified whether with hypoxia or hypercapnia; N17.0 Acute kidney failure with tubular necrosis; K66.1 Hemoperitoneum; E11.21 Type 2 diabetes mellitus with diabetic nephropathy; D62 Acute posthemorrhagic anemia; I13.0 Hypertensive heart and chronic kidney disease with heart failure and stage 1 through stage 4 chronic kidney disease, or unspecified chronic kidney disease; K80.00 Calculus of gallbladder with acute cholecystitis without obstruction; E78.5 Hyperlipidemia, unspecified; E03.9 Hypothyroidism, unspecified; K76.0 Fatty (change of) liver, not elsewhere classified; E66.9 Obesity, unspecified; I48.1 Persistent atrial fibrillation; K59.00 Constipation, unspecified; N18.9 Chronic kidney disease, unspecified; E11.22 Type 2 diabetes mellitus with diabetic chronic kidney disease; A49.02 Methicillin resistant Staphylococcus aureus infection, unspecified site
CPT/HCPCS: 36415; 36569; 36600; 71045; 71046; 74176; 74181; 76705; 78226; 80048; 80053; 80061; 80162; 80202; 81001; 82150; 82247; 82805; 82962; 83036; 83605; 83735; 83880; 84443; 84484; 85025; 85610; 85730; 86850; 86900; 86901; 86920; 87040; 87070; 87077; 87081; 87086; 87186; 87205; 93005; 93017; 93306; 93971; 94002; 94003; 96361; 96365; 96367; 97163; 99291; C9113; J0153; J0690; J1100; J1815; J1885; J2250; J2270; J2405; J2543; J2704; J7060

== ENCOUNTER 2019-08-19 07:47 | Inpatient (IN) | payer MEDICAID ==
[~2019-08-19] VITALS: Ht 157.5 cm; Wt 84.0 kg
[~2019-08-19 07:47] MED LIST: AMIO200T33 PO; ATOR10TA PO; CLIN300C8 PO; DIGO0.1220 PO; DOCU-94 PO; ENAL2.5T PO; GLIP10TA9 PO; HYDR-4833 PO; LEVO500T21 PO; LEVO50TA7 PO; MELO1TAB56 PO; METF-371 PO; METR500T PO; PANT1INJ3 PO; SACC250C PO; SITA100T7 PO
[2019-08-19] MEDS ORDERED: ONDANSETRON HCL 4 MG/2 ML VIAL IV ONE (08:30)
[2019-08-19] MEDS ORDERED: MORPHINE SULFATE 4 MG/ML SYR/VIAL IV ONE (08:30)
[2019-08-19 08:33] LABS: Basophils # (auto) 0.1 uL; Basophils % (auto) 0.6 % (0.0-2.0); Eosinophils # (auto) 0.1 uL; Lymphocytes # (auto) 1.2 uL; Monocytes # (auto) 0.6 uL
[2019-08-19 08:34] LABS: Eosinophils % (auto) 0.5 % (0.0-7.0); Hemoglobin 9.9 g/dL (12.2-16.2); Mean Corpuscular Hgb Conc. 30.8 g/dL (32.0-36.0); Mean Corpuscular Volume 74.7 fL (80.0-100.0); Monocytes % (auto) 6.2 % (0.0-12.0); Neutrophils # (auto) 7.8 uL; Neutrophils % (auto) 80.7 % (37.0-80.0); Platelet Count (auto) 248 10^3/uL (140-450); Red Blood Cells 4.28 10^6/uL (4.0-5.20); Red Cell Distribution Width 17.7 % (11.8-14.3); White Blood Cell 9.7 10^3/uL (4.4-10.8)
[2019-08-19 08:45] LABS: Albumin 3.5 g/dL (3.4-5.0); Anion Gap 7 (5-15); Blood Urea Nitrogen 17 mg/dL (7-18); Calcium 8.4 mg/dL (8.5-10.1); Carbon Dioxide 24 mmol/L (21-32); Chloride 110 mmol/L (98-107); Glucose 153 mg/dL (74-106); Potassium 4.6 mmol/L (3.5-5.1); Sodium 141 mmol/L (136-145)
[2019-08-19] MEDS ORDERED: METOPROLOL TARTRATE 25 MG TAB PO ONE (08:45)
[2019-08-19 08:50] LABS: INR 1.17 (0.9-1.15); Partial Thromboplastin Time 27.7 sec (23.64-32.05)
[2019-08-19 08:51] LABS: Alanine Aminotransferase 62 U/L (13-56); Alkaline Phosphatase 95 U/L (45-117); Aspartate Aminotransferase 66 U/L (15-37); BUN/Creatinine Ratio 23.9; Bilirubin, Total 0.6 mg/dL (0.2-1.0); GFR African American 100 mL/min; GFR Non-African American 83 mL/min; Total Protein 7.5 g/dL (6.4-8.2)
[2019-08-19] MEDS ORDERED: CETI10TA80 PO (10:09)
[2019-08-19] MEDS ORDERED: DONE5TAB31 PO (10:09)
[2019-08-19] MEDS ORDERED: ALOG1TAB2 PO (10:09)
[2019-08-19] MEDS ORDERED: MORPHINE SULF INJ 2 MG/ML SYRINGE 1ML IV PRN (10:15)
[2019-08-19] MEDS ORDERED: NITROGLYCERIN 0.4 MG SL TAB SL PRN (10:15)
[2019-08-19] MEDS ORDERED: LACTULOSE 20Gm/30ML SOLN PO PRN (10:15)
[2019-08-19] MEDS ORDERED: ACETAMINOPHEN 500 MG TAB PO PRN (10:15)
[2019-08-19] MEDS ORDERED: LORazepam 0.5 MG TAB PO PRN (10:15)
[2019-08-19] MEDS ORDERED: ONDANSETRON HCL 4 MG/2 ML VIAL IV PRN (10:15)
[2019-08-19] MEDS ORDERED: traMADol HCL 50 MG TAB PO PRN (10:15)
[2019-08-19] MEDS ORDERED: DEXTROSE (50%) 50ML SYRG IV PRN (10:15)
[2019-08-19 11:00] LABS: Urine Bacteria MANY /hpf (None Seen); Urine Blood Negative /uL (Negative); Urine Specific Gravity 1.008 (1.001-1.035); Urine WBC 3 /hpf (0 - 5)
[2019-08-19] MEDS: InsuLIN REG 1unit/0.01ml Soln (100units/ml) SC SCH ×3 (11:30→21:20)
[2019-08-19] MEDS: ACCU-CHEK COMFORT CURVE STRIP VI SCH ×3 (11:51→21:20)
[2019-08-19] MEDS ORDERED: SODIUM CHLOR 0.9% PF (SALINE LOCK) 10ML VIAL/SYR IV SCH (14:00)
[2019-08-19] MEDS: SODIUM CHLOR 0.9% PF (SALINE LOCK) 10ML VIAL/SYR IV SCH ×2 (14:04→21:18)
[2019-08-19 16:00] VITALS: BP 122/81
[2019-08-19 20:00] VITALS: BP 140/90
[2019-08-19] MEDS: FUROSEMIDE 40 MG/4 ML VIAL IV SCH (21:18)
[2019-08-19] MEDS: DOCUSATE SOD 100 MG CAP PO SCH (21:19)
[2019-08-19] MEDS: DONEPEZIL HYDROCHLORIDE 5 MG TAB PO SCH (21:19)
[2019-08-19] MEDS: ATORVASTATIN 20 MG TAB PO SCH (21:19)
[2019-08-19] MEDS: METOPROLOL TARTRATE 50 MG TAB PO SCH (21:20)
[2019-08-19] MEDS: ENOXAPARIN SOD 80 MG/0.8ML SYRINGE SC SCH (21:21)
[2019-08-19] MEDS ORDERED: METOPROLOL TARTRATE 25 MG TAB PO SCH (22:00)
[2019-08-20] VITALS (7 sets, daily range): BP systolic 88–124; BP diastolic 46–86
[2019-08-20 05:28] LABS: Eosinophils # (auto) 0.1 uL; Eosinophils % (auto) 0.8 % (0.0-7.0); Hemoglobin 9.7 g/dL (12.2-16.2); Mean Corpuscular Hemoglobin 23.5 pg (28.0-32.0); Mean Corpuscular Hgb Conc. 31.6 g/dL (32.0-36.0); Monocytes # (auto) 0.7 uL; Neutrophils # (auto) 6.6 uL; White Blood Cell 9.9 10^3/uL (4.4-10.8)
[2019-08-20 05:30] LABS: Basophils # (auto) 0 uL; Basophils % (auto) 0.4 % (0.0-2.0); Hematocrit 30.6 % (36.0-46.0); Lymphocytes # (auto) 2.5 uL; Lymphocytes % (auto) 25.2 % (10.0-50.0); Mean Corpuscular Volume 74.3 fL (80.0-100.0); Monocytes % (auto) 6.9 % (0.0-12.0); Neutrophils % (auto) 66.7 % (37.0-80.0); Nucleated Red Blood Cells % 0.1 %; Platelet Count (auto) 238 10^3/uL (140-450); Red Blood Cells 4.12 10^6/uL (4.0-5.20); Red Cell Distribution Width 17.3 % (11.8-14.3)
[2019-08-20 05:41] LABS: Albumin 3.2 g/dL (3.4-5.0); Calcium 8.2 mg/dL (8.5-10.1); Potassium 4.1 mmol/L (3.5-5.1)
[2019-08-20 05:43] LABS: BUN/Creatinine Ratio 30.3
[2019-08-20 05:45] LABS: Bilirubin, Total 0.6 mg/dL (0.2-1.0); Total Protein 7.3 g/dL (6.4-8.2)
[2019-08-20] MEDS: SODIUM CHLOR 0.9% PF (SALINE LOCK) 10ML VIAL/SYR IV SCH ×3 (06:00→21:41)
[2019-08-20] MEDS: InsuLIN REG 1unit/0.01ml Soln (100units/ml) SC SCH ×4 (06:58→21:42)
[2019-08-20] MEDS: ACCU-CHEK COMFORT CURVE STRIP VI SCH ×4 (06:58→21:42)
[2019-08-20] MEDS: LEVOTHYROXINE SODIUM 50 MCG TAB PO SCH (07:03)
[2019-08-20] MEDS: glipiZIDE 5 MG TAB PO SCH (07:03)
[2019-08-20] MEDS: FUROSEMIDE 40 MG/4 ML VIAL IV SCH ×2 (09:51→21:41)
[2019-08-20] MEDS: DOCUSATE SOD 100 MG CAP PO SCH ×2 (09:52→21:41)
[2019-08-20] MEDS: POTASSIUM CHL 20 Meq TABLET PO SCH (09:52)
[2019-08-20] MEDS: ASPirin 81 mg TAB PO SCH (09:52)
[2019-08-20] MEDS: DIGOXIN 0.125 MG TAB PO SCH (09:53)
[2019-08-20] MEDS: AMIODARONE HCL 200 MG TAB PO SCH (09:53)
[2019-08-20] MEDS: ENALAPRIL MALEATE 10 MG TAB PO SCH (09:54)
[2019-08-20] MEDS: PANTOPRAZOLE 40 MG TAB PO SCH (09:54)
[2019-08-20] MEDS: NITROGLYCERIN 0.2MG/HR TOPICAL PATCH TD SCH (09:55)
[2019-08-20] MEDS: ENOXAPARIN SOD 80 MG/0.8ML SYRINGE SC SCH (09:56)
[2019-08-20] MEDS: METOPROLOL TARTRATE 50 MG TAB PO SCH ×2 (09:58→21:42)
[2019-08-20] MEDS ORDERED: FUROSEMIDE 40 MG/4 ML VIAL IV SCH (10:00)
[2019-08-20] MEDS: [UNRECOGNIZED DRUG - OTHER] PO SCH (10:00)
[2019-08-20] MEDS ORDERED: APIXABAN 5 MG TAB PO SCH (10:15)
[2019-08-20] MEDS ORDERED: APIXABAN 5 MG TAB PO ONE (10:45)
[2019-08-20] MEDS: APIXABAN 5 MG TAB PO SCH (21:41)
[2019-08-20] MEDS: DONEPEZIL HYDROCHLORIDE 5 MG TAB PO SCH (21:41)
[2019-08-20] MEDS: ATORVASTATIN 20 MG TAB PO SCH (21:41)
[2019-08-21] VITALS: BP 135/99
[2019-08-21 04:00] VITALS: BP 107/67
[2019-08-21] MEDS: SODIUM CHLOR 0.9% PF (SALINE LOCK) 10ML VIAL/SYR IV SCH (06:00)
[2019-08-21] MEDS: InsuLIN REG 1unit/0.01ml Soln (100units/ml) SC SCH ×2 (06:39→11:30)
[2019-08-21] MEDS: ACCU-CHEK COMFORT CURVE STRIP VI SCH ×2 (06:40→11:30)
[2019-08-21] MEDS: LEVOTHYROXINE SODIUM 50 MCG TAB PO SCH (06:49)
[2019-08-21] MEDS: glipiZIDE 5 MG TAB PO SCH (06:49)
[2019-08-21 07:50] VITALS: BP 113/59
[2019-08-21] MEDS: ENALAPRIL MALEATE 10 MG TAB PO SCH (10:00)
[2019-08-21] MEDS: POTASSIUM CHL 20 Meq TABLET PO SCH (10:00)
[2019-08-21] MEDS: FUROSEMIDE 40 MG/4 ML VIAL IV SCH (10:00)
[2019-08-21] MEDS: NITROGLYCERIN 0.2MG/HR TOPICAL PATCH TD SCH (10:00)
[2019-08-21] MEDS: PANTOPRAZOLE 40 MG TAB PO SCH (10:22)
[2019-08-21] MEDS: ASPirin 81 mg TAB PO SCH (10:22)
[2019-08-21] MEDS: APIXABAN 5 MG TAB PO SCH (10:22)
[2019-08-21] MEDS: DOCUSATE SOD 100 MG CAP PO SCH (10:22)
[2019-08-21] MEDS: AMIODARONE HCL 200 MG TAB PO SCH (10:40)
[2019-08-21] MEDS: DIGOXIN 0.125 MG TAB PO SCH (10:41)
[2019-08-21] MEDS: [UNRECOGNIZED DRUG - OTHER] PO SCH (10:41)
[2019-08-21] MEDS: METOPROLOL TARTRATE 50 MG TAB PO SCH (10:42)
[2019-08-21 11:40] VITALS: BP 101/57
== END 2019-08-21 15:17 | disposition home health service (06) | DRG 201 ==
LOC: ER 07:47 → EDBD 07:47 → EDUNIT# 07:47 → OVERFLOW 07:48 → TELE 14:29 → DOU IN ICU 15:16
PROVIDERS: ADMIT Internal Medicine; ATTEND Internal Medicine
DX: I48.91 Unspecified atrial fibrillation (principal); I50.43 Acute on chronic combined systolic (congestive) and diastolic (congestive) heart failure; E11.22 Type 2 diabetes mellitus with diabetic chronic kidney disease; E11.40 Type 2 diabetes mellitus with diabetic neuropathy, unspecified; I13.0 Hypertensive heart and chronic kidney disease with heart failure and stage 1 through stage 4 chronic kidney disease, or unspecified chronic kidney disease; I24.9 Acute ischemic heart disease, unspecified; D63.8 Anemia in other chronic diseases classified elsewhere; E03.9 Hypothyroidism, unspecified; E78.5 Hyperlipidemia, unspecified; E66.9 Obesity, unspecified; N18.9 Chronic kidney disease, unspecified; F02.80 Dementia in other diseases classified elsewhere, unspecified severity, without behavioral disturbance, psychotic disturbance, mood disturbance, and anxiety; G30.9 Alzheimer's disease, unspecified; Z79.01 Long term (current) use of anticoagulants; Z90.49 Acquired absence of other specified parts of digestive tract; Z86.14 Personal history of Methicillin resistant Staphylococcus aureus infection; Z68.33 Body mass index [BMI] 33.0-33.9, adult
CPT/HCPCS: 36415; 71045; 80053; 81001; 82550; 82962; 83036; 83735; 83880; 84436; 84443; 84480; 84484; 85025; 85379; 85610; 85652; 85730; 86141; 87081; 93005; 93306; 96372; 96374; 96375; 97163; 99291; G0378; J1815; J2405